=== PATIENT | female | born 1940 | race Caucasian/White ===

== ENCOUNTER 2021-06-10 18:00 | Inpatient (IN) | payer MEDICARE ==
[2021-06-10 19:08] LABS: #Eosinphils 0.3 thou/uL (0.0-0.7); #Lymphocytes 0.9 thou/uL (1.20-3.40); #Monocytes 0.7 thou/uL (0.11-0.59); #Neutrophils 7.5 thou/uL (1.40-6.50); %Basophils 0.1 % (0.0-1.0); %Eosinophils 3.1 % (0.0-10.0); %Lymphocytes 9.4 % (21.0-51.0); %Monocytes 7.2 % (0.0-10.0); %Neutrophils 80.2 % (42.0-75.0); Hemoglobin 15.4 g/dL (12.0-16.0); Mean Corpuscular Volume 78.6 fL (78.0-98.0); Mean Platelet Volume 7.8 fL (7.4-10.4); Platelet Count 162 thou/uL (130-400); RBC Distribution Width 15.2 % (11.5-14.5); Red Blood Cell (RBC) Count 5.94 mill/uL (4.20-5.40); White Blood Cell (WBC) Count 9.3 thou/uL (4.8-10.8)
[2021-06-10 19:37] LABS: CK (CPK) 458 U/L (29-168); Magnesium 1.7 mg/dL (1.6-2.6)
[2021-06-10 20:01] LABS: CKMB 3.2 ng/mL (0-6.6)
[2021-06-10 21:15] LABS: Bacteria/HPF 4+ HPF (None Seen); Bilirubin Negative (Negative); Blood, Urine 2+ (Negative); Clarity Turbid (Clear); Glucose, Urine (Dipstick) Normal (Negative); Ketone, Urine Negative (Negative); Leukocyte 75 Leu/uL (Negative); Nitrite Negative (Negative); Protein, Urine (Dipstick) 300 mg/dL (Neg-Trace); RBC/HPF 0-3 HPF (0-3); Specific Gravity, Urine 1.015 (1.002-1.036); pH, Urine 6.5 (5.0-9.0)
[2021-06-10] MEDS ORDERED: Aspirin 325 MG TAB ONE (21:38)
[2021-06-10 22:13] LABS: ALT (SGPT) 11 U/L (8-55); AST (SGOT) 28 U/L (5-34); Alkaline Phosphatase 102 U/L (40-110); Anion Gap 17 mmol/L (10-20); BUN (Urea Nitrogen) 26 mg/dL (9.8-20.1); Bilirubin, Total 1.9 mg/dL (0.2-1.2); Calc. Creatinine Clearance 0 mL/min (70-130); Calcium 10.9 mg/dL (7.8-10.44); Carbon Dioxide 23 mmol/L (23-31); Chloride 98 mmol/L (98-107); Globulin 4.1 g/dL (2.4-3.5); Glucose 157 mg/dL (83-110); Potassium 3.4 mmol/L (3.5-5.1); Protein, Total 8.1 g/dL (5.8-8.1); Sodium 135 mmol/L (136-145)
[2021-06-10 23:25] LABS: Troponin I 0.084 ng/mL (< 0.028)
[2021-06-10 23:40] VITALS: BMI 27.4
[2021-06-11] MEDS ORDERED: Labetalol HCl 100 MG/20 ML VIAL SLOW IVP SCH (00:53)
[2021-06-11 01:51] LABS: Troponin I 0.073 ng/mL (< 0.028)
[2021-06-11] MEDS ORDERED: Ondansetron PF 4 MG/2 ML Vial IVP PRN (02:37)
[2021-06-11] MEDS ORDERED: Sodium Chloride 0.9% 1,000 ML IV SCH (02:45)
[2021-06-11] MEDS ORDERED: Potassium Chloride 20 MEQ TAB PO SCH ×2 (02:45→17:45)
[2021-06-11] MEDS ORDERED: hydrALAZINE 20 MG/ML VIAL SLOW IVP PRN (03:08)
[2021-06-11] MEDS: hydrALAZINE 20 MG/ML VIAL SLOW IVP PRN ×2 (03:50→23:18)
[2021-06-11] MEDS: Acetaminophen 325 MG TAB PO PRN ×2 (04:30→23:23)
[2021-06-11 05:10] LABS: #Basophils 0.1 thou/uL (0.0-0.2); #Eosinphils 0.3 thou/uL (0.0-0.7); #Monocytes 0.7 thou/uL (0.11-0.59); #Neutrophils 8.7 thou/uL (1.40-6.50); %Basophils 0.5 % (0.0-1.0); %Eosinophils 2.9 % (0.0-10.0); %Lymphocytes 9.2 % (21.0-51.0); %Monocytes 6.4 % (0.0-10.0); Hemoglobin 15.2 g/dL (12.0-16.0); Mean Corpuscular HGB CONC 33.4 g/dL (32.0-36.0); Mean Corpuscular Hemoglobin 26.2 pg (27.0-31.0); Mean Corpuscular Volume 78.5 fL (78.0-98.0); Mean Platelet Volume 7.7 fL (7.4-10.4); Platelet Count 179 thou/uL (130-400); RBC Distribution Width 15.3 % (11.5-14.5); Red Blood Cell (RBC) Count 5.78 mill/uL (4.20-5.40); White Blood Cell (WBC) Count 10.7 thou/uL (4.8-10.8)
[2021-06-11 05:33] LABS: Anion Gap 14 mmol/L (10-20); BUN (Urea Nitrogen) 25 mg/dL (9.8-20.1); Calc. Creatinine Clearance 35 mL/min (70-130); Calcium 10.5 mg/dL (7.8-10.44); Carbon Dioxide 24 mmol/L (23-31); Chloride 98 mmol/L (98-107); Glucose 168 mg/dL (83-110); Magnesium 1.7 mg/dL (1.6-2.6); Sodium 133 mmol/L (136-145)
[2021-06-11] MEDS ORDERED: Carvedilol 6.25 MG TAB PO SCH (08:00)
[2021-06-11] MEDS: traMADol HCl 50 MG TAB PO PRN ×2 (08:46→22:01)
[2021-06-11] MEDS ORDERED: Enoxaparin Sodium 40 MG/0.4 ML SYRINGE SC SCH (09:00)
[2021-06-11] MEDS ORDERED: Rivaroxaban 15 MG TAB PO SCH (09:00)
[2021-06-11 14:20] LABS: SARS-CoV-2 PCR by NAA Not Detected (NotDetected)
[2021-06-11] MEDS: Carvedilol 6.25 MG TAB PO SCH (19:50)
[2021-06-11] MEDS ORDERED: Atorvastatin Calcium 20 MG TAB PO SCH (21:00)
[2021-06-12 04:26] LABS: #Eosinphils 0.3 thou/uL (0.0-0.7); #Lymphocytes 0.8 thou/uL (1.20-3.40); #Monocytes 0.7 thou/uL (0.11-0.59); #Neutrophils 6.7 thou/uL (1.40-6.50); %Basophils 0.4 % (0.0-1.0); %Eosinophils 3.7 % (0.0-10.0); %Lymphocytes 9.2 % (21.0-51.0); %Monocytes 8.5 % (0.0-10.0); %Neutrophils 78.2 % (42.0-75.0); Hemoglobin 13.3 g/dL (12.0-16.0); Mean Corpuscular HGB CONC 32.4 g/dL (32.0-36.0); Mean Corpuscular Volume 80.2 fL (78.0-98.0); Mean Platelet Volume 7.5 fL (7.4-10.4); Platelet Count 165 thou/uL (130-400); RBC Distribution Width 14.9 % (11.5-14.5); White Blood Cell (WBC) Count 8.6 thou/uL (4.8-10.8)
[2021-06-12 04:52] LABS: ALT (SGPT) 8 U/L (8-55); AST (SGOT) 14 U/L (5-34); Albumin 3.3 g/dL (3.4-4.8); Alkaline Phosphatase 89 U/L (40-110); Bilirubin, Direct 0.6 mg/dL (0.1-0.3); Bilirubin, Total 1.4 mg/dL (0.2-1.2); Protein, Total 6.5 g/dL (5.8-8.1)
[2021-06-12 04:55] LABS: Anion Gap 11 mmol/L (10-20); BUN (Urea Nitrogen) 24 mg/dL (9.8-20.1); Calc. Creatinine Clearance 36 mL/min (70-130); Carbon Dioxide 23 mmol/L (23-31); Chloride 101 mmol/L (98-107); Glucose 166 mg/dL (83-110); Magnesium 1.6 mg/dL (1.6-2.6); Sodium 131 mmol/L (136-145)
[2021-06-12] MEDS: Carvedilol 6.25 MG TAB PO SCH (08:53)
[2021-06-12] MEDS ORDERED: Rivaroxaban 15 MG TAB PO SCH (09:00)
[2021-06-12] MEDS ORDERED: FLUoxetine HCl 20 MG CAP PO SCH (09:00)
[2021-06-12] MEDS ORDERED: Cholecalciferol 1,000 UNITS (25 MCG) TAB PO SCH (09:00)
[2021-06-12] MEDS ORDERED: Furosemide 20 MG TAB PO SCH (09:00)
[2021-06-12] MEDS ORDERED: Amlodipine 5 MG TAB PO SCH (09:00)
[2021-06-12] MEDS ORDERED: Atorvastatin Calcium 20 MG TAB PO SCH (09:00)
[2021-06-12] MEDS ORDERED: Aspirin 81 mg Enteric Coated Tablet PO SCH (09:00)
[2021-06-12] MEDS ORDERED: Magnesium 2 GM/50 ML 2 GM in Premix Bag 1 BAG IVPB SCH (10:00)
[2021-06-12 13:17] LABS: ALT (SGPT) 9 U/L (8-55); AST (SGOT) 12 U/L (5-34); Albumin 3.3 g/dL (3.4-4.8); Alkaline Phosphatase 91 U/L (40-110); Bilirubin, Direct 0.5 mg/dL (0.1-0.3); Bilirubin, Total 1.3 mg/dL (0.2-1.2); Protein, Total 6.4 g/dL (5.8-8.1)
[2021-06-12] MEDS: traMADol HCl 50 MG TAB PO PRN (16:04)
[2021-06-12 16:07] VITALS: BP 150/70; TEMP 98.3
[2021-06-13] MEDS ORDERED: Amlodipine 10 MG TAB PO SCH (09:00)
== END 2021-06-12 17:45 | DRG 86 ==
LOC: ERS 18:00 → 2NO 21:29 → OBSVTOIN 06-11 16:11
PROVIDERS: ADMIT Internal Medicine; ATTEND Internal Medicine
DX: S06.350A Traumatic hemorrhage of left cerebrum without loss of consciousness, initial encounter (principal); E87.1 Hypo-osmolality and hyponatremia; I48.20 Chronic atrial fibrillation, unspecified; N17.9 Acute kidney failure, unspecified; S06.340A Traumatic hemorrhage of right cerebrum without loss of consciousness, initial encounter; Z20.822 Contact with and (suspected) exposure to COVID-19; E87.6 Hypokalemia; E88.09 Other disorders of plasma-protein metabolism, not elsewhere classified; N18.30 Chronic kidney disease, stage 3 unspecified; I16.0 Hypertensive urgency; E78.5 Hyperlipidemia, unspecified; I12.9 Hypertensive chronic kidney disease with stage 1 through stage 4 chronic kidney disease, or unspecified chronic kidney disease; I25.10 Atherosclerotic heart disease of native coronary artery without angina pectoris; M10.9 Gout, unspecified; M54.9 Dorsalgia, unspecified; W18.39XA Other fall on same level, initial encounter; Y93.01 Activity, walking, marching and hiking; I35.0 Nonrheumatic aortic (valve) stenosis; R79.89 Other specified abnormal findings of blood chemistry; E11.22 Type 2 diabetes mellitus with diabetic chronic kidney disease; M81.0 Age-related osteoporosis without current pathological fracture; Z79.01 Long term (current) use of anticoagulants; Z79.82 Long term (current) use of aspirin; Z79.899 Other long term (current) drug therapy; Z90.710 Acquired absence of both cervix and uterus; Z98.51 Tubal ligation status; Z90.49 Acquired absence of other specified parts of digestive tract; Z90.89 Acquired absence of other organs; Y92.002 Bathroom of unspecified non-institutional (private) residence as the place of occurrence of the external cause
CPT/HCPCS: 36415; 70450; 70551; 72125; 72131; 80048; 80053; 80076; 81003; 81015; 82550; 82553; 83735; 84484; 85025; 93005; 96374; 96375; G0378; J0360; J3475; J7050; U0003; U0005

== ENCOUNTER 2022-03-18 19:30 | Outpatient (CLI) | payer MEDICARE, OTHER | END 2022-03-18 19:31 | disposition home or self-care (01) | LOC: SLEEPLAB 19:30 | PROVIDERS: ATTEND Internal Medicine Cardiovascular Disease | DX: G47.33 Obstructive sleep apnea (adult) (pediatric) (principal); R53.83 Other fatigue; I27.20 Pulmonary hypertension, unspecified; R06.83 Snoring; G47.00 Insomnia, unspecified; G47.10 Hypersomnia, unspecified; I48.91 Unspecified atrial fibrillation; F32.9 Major depressive disorder, single episode, unspecified; I10 Essential (primary) hypertension | CPT/HCPCS: 95811 ==

== ENCOUNTER 2022-05-01 08:23 | Inpatient (IN) | payer MEDICARE, OTHER ==
[2022-05-01] MEDS ORDERED: Iopamidol-370 76% 500 ML 1 ML ONE (08:56)
[2022-05-01 10:23] LABS: Mean Corpuscular Hemoglobin 22.1 pg (27.0-31.0); Mean Corpuscular Volume 76.3 fL (78.0-98.0); Mean Platelet Volume 9.1 fL (7.4-10.4); Platelet Count 129 thou/uL (130-400); RBC Distribution Width 17.6 % (11.5-14.5); Red Blood Cell (RBC) Count 3.16 mill/uL (4.20-5.40); White Blood Cell (WBC) Count 7.4 thou/uL (4.8-10.8)
[2022-05-01 10:24] LABS: #Eosinphils 1.1 thou/uL (0.0-0.7); #Lymphocytes 0.5 thou/uL (1.20-3.40); #Monocytes 0.7 thou/uL (0.11-0.59); #Neutrophils 5.1 thou/uL (1.40-6.50); %Basophils 0.4 % (0.0-1.0); %Eosinophils 14.6 % (0.0-10.0); %Lymphocytes 7.1 % (21.0-51.0); %Monocytes 8.9 % (0.0-10.0)
[2022-05-01 10:35] LABS: INR-International Normal Ratio 1.7; Prothrombin Time 20.1 sec (12.0-14.7)
[2022-05-01 10:36] LABS: PTT 37.2 sec (22.9-36.1)
[2022-05-01 10:48] LABS: ALT (SGPT) Less than 7 U/L (8-55); AST (SGOT) 9 U/L (5-34); Albumin 3.6 g/dL (3.4-4.8); Alkaline Phosphatase 75 U/L (40-110); Anion Gap 13 mmol/L (10-20); BUN (Urea Nitrogen) 29 mg/dL (9.8-20.1); Bilirubin, Total 0.8 mg/dL (0.2-1.2); Calc. Creatinine Clearance 0 mL/min (70-130); Calcium 9.7 mg/dL (7.8-10.44); Carbon Dioxide 24 mmol/L (23-31); Chloride 106 mmol/L (98-107); Estimated GFR 23; Globulin 3.1 g/dL (2.4-3.5); Glucose 142 mg/dL (83-110); Potassium 3.5 mmol/L (3.5-5.1); Protein, Total 6.7 g/dL (5.8-8.1); Sodium 139 mmol/L (136-145)
[2022-05-01 10:55] LABS: Hypochromia SLIGHT = 6-15 cells (100X) (0-5/hpf); MDiff Complete? YES; Microcytosis SLIGHT = 6-15 cells (100X) (0-5/hpf); Platelet Morphology Comment Appears Decreased; Polychromasia SLIGHT = 2-3 cells (100X) (0-2/hpf)
[2022-05-01] MEDS ORDERED: Ondansetron PF 4 MG/2 ML Vial IVP PRN (14:56)
[2022-05-01] MEDS ORDERED: Ondansetron ODT 4 MG TAB PO PRN (14:56)
[2022-05-01] MEDS ORDERED: Calcium Carbonate 500 MG ChewTAB PO PRN (14:56)
[2022-05-01] MEDS ORDERED: Senokot S 8.6-50 MG TAB PO PRN (14:56)
[2022-05-01] MEDS ORDERED: Electrolyte Replacement Protocol FS SCH (15:00)
[2022-05-01] MEDS: Carvedilol 3.125 MG TAB PO SCH (17:42)
[2022-05-01 18:31] VITALS: BMI 26.4
[2022-05-01 19:00] LABS: Troponin I 0.012 ng/mL (< 0.028)
[2022-05-01 20:33] LABS: Troponin I Less than 0.010 ng/mL (< 0.028)
[2022-05-01] MEDS: Atorvastatin Calcium 40 MG TAB PO SCH (21:31)
[2022-05-01] MEDS: Folic Acid 1 MG TAB PO SCH (21:31)
[2022-05-01] MEDS: hydrALAZINE 25 MG TAB PO SCH (21:31)
[2022-05-01] MEDS: Amlodipine 5 MG TAB PO SCH (21:31)
[2022-05-01 22:51] LABS: Bacteria/HPF 4+ HPF (None Seen); Bilirubin Negative (Negative); Blood, Urine Negative (Negative); Clarity Turbid (Clear); Glucose, Urine (Dipstick) 500 mg/dL (Negative); Ketone, Urine Negative (Negative); Leukocyte 500 Leu/uL (Negative); Nitrite Negative (Negative); Protein, Urine (Dipstick) 20 mg/dL (Neg-Trace); RBC/HPF 0-3 HPF (0-3); Specific Gravity, Urine 1.021 (1.002-1.036); Squamous Epithelial None Seen HPF (0-3); Urobilinogen Normal mg/dL (Less than 2); WBC/HPF Greater than 50 HPF (0-3)
[2022-05-01 22:52] LABS: Urine Culture Reflex Yes Yes
[2022-05-02 04:04] LABS: #Eosinphils 0.9 thou/uL (0.0-0.7); #Lymphocytes 0.5 thou/uL (1.20-3.40); #Monocytes 0.6 thou/uL (0.11-0.59); #Neutrophils 4.5 thou/uL (1.40-6.50); %Basophils 0.4 % (0.0-1.0); %Eosinophils 13.7 % (0.0-10.0); %Lymphocytes 7.9 % (21.0-51.0); %Monocytes 8.8 % (0.0-10.0); %Neutrophils 69.3 % (42.0-75.0); Hemoglobin 8.6 g/dL (12.0-16.0); Mean Corpuscular HGB CONC 31.1 g/dL (32.0-36.0); Mean Corpuscular Hemoglobin 24.6 pg (27.0-31.0); Mean Corpuscular Volume 79.1 fL (78.0-98.0); Mean Platelet Volume 9.2 fL (7.4-10.4); Platelet Count 114 thou/uL (130-400); RBC Distribution Width 17.5 % (11.5-14.5); Red Blood Cell (RBC) Count 3.49 mill/uL (4.20-5.40); White Blood Cell (WBC) Count 6.5 thou/uL (4.8-10.8)
[2022-05-02 04:22] LABS: Phosphorus 3.2 mg/dL (2.3-4.7)
[2022-05-02 04:26] LABS: Anion Gap 12 mmol/L (10-20); BUN (Urea Nitrogen) 26 mg/dL (9.8-20.1); Calc. Creatinine Clearance 25 mL/min (70-130); Calcium 9.1 mg/dL (7.8-10.44); Carbon Dioxide 23 mmol/L (23-31); Chloride 106 mmol/L (98-107); Estimated GFR 28; Glucose 123 mg/dL (83-110); Magnesium 2.1 mg/dL (1.6-2.6); Potassium 3.6 mmol/L (3.5-5.1); Sodium 137 mmol/L (136-145)
[2022-05-02 04:31] LABS: Reticulocyte Count 2.6 % (0.5-1.5)
[2022-05-02] MEDS: hydrALAZINE 25 MG TAB PO SCH ×3 (09:10→20:44)
[2022-05-02] MEDS: FLUoxetine HCl 20 MG CAP PO SCH (09:10)
[2022-05-02] MEDS: Carvedilol 3.125 MG TAB PO SCH ×2 (09:10→17:46)
[2022-05-02] MEDS: Amlodipine 5 MG TAB PO SCH ×2 (09:10→20:44)
[2022-05-02] MEDS ORDERED: Loratadine 10 MG TAB PO SCH (10:00)
[2022-05-02] MEDS: diphenhydrAMINE 30 GM TUBE TOP PRN (20:44)
[2022-05-02] MEDS: Folic Acid 1 MG TAB PO SCH (20:44)
[2022-05-02] MEDS: Atorvastatin Calcium 40 MG TAB PO SCH (20:44)
[2022-05-03] MEDS: diphenhydrAMINE 30 GM TUBE TOP PRN (03:38)
[2022-05-03] MEDS: Acetaminophen 325 MG TAB PO PRN ×2 (03:50→20:18)
[2022-05-03 05:10] LABS: #Lymphocytes 0.4 thou/uL (1.20-3.40); #Monocytes 0.6 thou/uL (0.11-0.59); #Neutrophils 4.7 thou/uL (1.40-6.50); %Basophils 0.5 % (0.0-1.0); %Eosinophils 14.8 % (0.0-10.0); %Lymphocytes 6.3 % (21.0-51.0); %Monocytes 8.7 % (0.0-10.0); %Neutrophils 69.7 % (42.0-75.0); Hemoglobin 8.7 g/dL (12.0-16.0); Mean Corpuscular HGB CONC 30.8 g/dL (32.0-36.0); Mean Corpuscular Hemoglobin 24.6 pg (27.0-31.0); Mean Corpuscular Volume 79.9 fL (78.0-98.0); Mean Platelet Volume 9.4 fL (7.4-10.4); Platelet Count 118 thou/uL (130-400); RBC Distribution Width 18.1 % (11.5-14.5); Red Blood Cell (RBC) Count 3.53 mill/uL (4.20-5.40); White Blood Cell (WBC) Count 6.8 thou/uL (4.8-10.8)
[2022-05-03 05:22] LABS: Anion Gap 9 mmol/L (10-20); BUN (Urea Nitrogen) 27 mg/dL (9.8-20.1); Calc. Creatinine Clearance 25 mL/min (70-130); Calcium 9.4 mg/dL (7.8-10.44); Carbon Dioxide 26 mmol/L (23-31); Chloride 108 mmol/L (98-107); Estimated GFR 28; Glucose 126 mg/dL (83-110); Magnesium 2.2 mg/dL (1.6-2.6); Potassium 3.6 mmol/L (3.5-5.1); Sodium 139 mmol/L (136-145)
[2022-05-03] MEDS: Carvedilol 3.125 MG TAB PO SCH ×2 (10:07→15:50)
[2022-05-03] MEDS: Amlodipine 5 MG TAB PO SCH ×2 (10:07→20:18)
[2022-05-03] MEDS: hydrALAZINE 25 MG TAB PO SCH ×3 (10:07→20:18)
[2022-05-03] MEDS: FLUoxetine HCl 20 MG CAP PO SCH (10:07)
[2022-05-03] MEDS ORDERED: CEFAZOLIN 1 GM in Sodium Chloride 0.9% 100 ML IVPB SCH (12:00)
[2022-05-03] MEDS: diphenhydrAMINE 25 MG CAP PO PRN (18:27)
[2022-05-03] MEDS: HYDROcodone/Acetaminophen 7.5/325 mg Tablet PO PRN (18:30)
[2022-05-03] MEDS: Folic Acid 1 MG TAB PO SCH (20:18)
[2022-05-03] MEDS: Atorvastatin Calcium 40 MG TAB PO SCH (20:18)
[2022-05-04] MEDS: diphenhydrAMINE 25 MG CAP PO PRN (00:29)
[2022-05-04] MEDS: Acetaminophen 325 MG TAB PO PRN (00:29)
[2022-05-04] MEDS: CEFAZOLIN 1 GM in Sodium Chloride 0.9% 100 ML IVPB SCH ×2 (04:00→14:42)
[2022-05-04] MEDS: diphenhydrAMINE 30 GM TUBE TOP PRN ×3 (04:01→19:00)
[2022-05-04 05:25] LABS: #Eosinphils 1.4 thou/uL (0.0-0.7); #Lymphocytes 0.5 thou/uL (1.20-3.40); #Monocytes 0.6 thou/uL (0.11-0.59); #Neutrophils 4.6 thou/uL (1.40-6.50); %Basophils 0.3 % (0.0-1.0); %Eosinophils 20.1 % (0.0-10.0); %Lymphocytes 6.7 % (21.0-51.0); %Monocytes 8.4 % (0.0-10.0); %Neutrophils 64.6 % (42.0-75.0); Hemoglobin 8.7 g/dL (12.0-16.0); Mean Corpuscular HGB CONC 30.5 g/dL (32.0-36.0); Mean Corpuscular Hemoglobin 24.4 pg (27.0-31.0); Mean Corpuscular Volume 80.1 fL (78.0-98.0); Mean Platelet Volume 9.1 fL (7.4-10.4); Platelet Count 123 thou/uL (130-400); Red Blood Cell (RBC) Count 3.58 mill/uL (4.20-5.40); White Blood Cell (WBC) Count 7.1 thou/uL (4.8-10.8)
[2022-05-04 05:39] LABS: Anion Gap 9 mmol/L (10-20); BUN (Urea Nitrogen) 29 mg/dL (9.8-20.1); Calc. Creatinine Clearance 23 mL/min (70-130); Calcium 9.5 mg/dL (7.8-10.44); Carbon Dioxide 26 mmol/L (23-31); Chloride 107 mmol/L (98-107); Estimated GFR 25; Glucose 121 mg/dL (83-110); Potassium 3.7 mmol/L (3.5-5.1); Sodium 138 mmol/L (136-145)
[2022-05-04] MEDS: hydrALAZINE 25 MG TAB PO SCH ×4 (08:10→21:05)
[2022-05-04] MEDS: Carvedilol 3.125 MG TAB PO SCH ×2 (08:10→17:37)
[2022-05-04] MEDS: Amlodipine 5 MG TAB PO SCH ×2 (08:10→21:05)
[2022-05-04] MEDS: FLUoxetine HCl 20 MG CAP PO SCH (08:10)
[2022-05-04] MEDS: HYDROcodone/Acetaminophen 7.5/325 mg Tablet PO PRN ×2 (08:15→21:05)
[2022-05-04] MEDS ORDERED: Fluconazole 100 MG TAB PO SCH (16:19)
[2022-05-04] MEDS: Folic Acid 1 MG TAB PO SCH (21:05)
[2022-05-04] MEDS: Atorvastatin Calcium 40 MG TAB PO SCH (21:05)
[2022-05-05] MEDS: CEFAZOLIN 1 GM in Sodium Chloride 0.9% 100 ML IVPB SCH ×2 (03:21→21:23)
[2022-05-05 07:14] LABS: Anion Gap 11 mmol/L (10-20); BUN (Urea Nitrogen) 29 mg/dL (9.8-20.1); Calc. Creatinine Clearance 23 mL/min (70-130); Calcium 9.9 mg/dL (7.8-10.44); Carbon Dioxide 25 mmol/L (23-31); Chloride 107 mmol/L (98-107); Estimated GFR 25; Glucose 127 mg/dL (83-110); Potassium 4.3 mmol/L (3.5-5.1); Sodium 139 mmol/L (136-145)
[2022-05-05 07:17] LABS: #Eosinphils 1.3 thou/uL (0.0-0.7); #Lymphocytes 0.4 thou/uL (1.20-3.40); #Monocytes 0.4 thou/uL (0.11-0.59); #Neutrophils 5.1 thou/uL (1.40-6.50); %Basophils 0.3 % (0.0-1.0); %Eosinophils 18.4 % (0.0-10.0); %Lymphocytes 5.6 % (21.0-51.0); %Monocytes 5.9 % (0.0-10.0); %Neutrophils 69.9 % (42.0-75.0); Hemoglobin 9.7 g/dL (12.0-16.0); Mean Corpuscular HGB CONC 29.9 g/dL (32.0-36.0); Mean Corpuscular Hemoglobin 24.3 pg (27.0-31.0); Mean Corpuscular Volume 81.1 fL (78.0-98.0); Mean Platelet Volume 8.7 fL (7.4-10.4); Platelet Count 134 thou/uL (130-400); RBC Distribution Width 19.3 % (11.5-14.5); Red Blood Cell (RBC) Count 4.02 mill/uL (4.20-5.40); White Blood Cell (WBC) Count 7.2 thou/uL (4.8-10.8)
[2022-05-05] MEDS: Acetaminophen 325 MG TAB PO PRN ×2 (09:24→21:27)
[2022-05-05] MEDS: hydrALAZINE 25 MG TAB PO SCH ×4 (09:24→21:24)
[2022-05-05] MEDS: Carvedilol 3.125 MG TAB PO SCH ×2 (09:24→17:26)
[2022-05-05] MEDS: FLUoxetine HCl 20 MG CAP PO SCH (09:24)
[2022-05-05] MEDS: Amlodipine 5 MG TAB PO SCH ×2 (09:24→21:24)
[2022-05-05] MEDS: Folic Acid 1 MG TAB PO SCH (21:24)
[2022-05-05] MEDS: Atorvastatin Calcium 40 MG TAB PO SCH (21:24)
[2022-05-05] MEDS: diphenhydrAMINE 25 MG CAP PO PRN (21:27)
[2022-05-06] MEDS: CEFAZOLIN 1 GM in Sodium Chloride 0.9% 100 ML IVPB SCH ×3 (01:09→21:15)
[2022-05-06 04:55] LABS: #Eosinphils 1.4 thou/uL (0.0-0.7); #Lymphocytes 0.4 thou/uL (1.20-3.40); #Monocytes 0.5 thou/uL (0.11-0.59); #Neutrophils 4.1 thou/uL (1.40-6.50); %Basophils 0.1 % (0.0-1.0); %Eosinophils 21.9 % (0.0-10.0); %Lymphocytes 6.3 % (21.0-51.0); %Monocytes 7.8 % (0.0-10.0); %Neutrophils 63.8 % (42.0-75.0); Hemoglobin 8.4 g/dL (12.0-16.0); Mean Corpuscular HGB CONC 29.8 g/dL (32.0-36.0); Mean Corpuscular Hemoglobin 23.9 pg (27.0-31.0); Mean Corpuscular Volume 80.3 fL (78.0-98.0); Mean Platelet Volume 9.1 fL (7.4-10.4); Platelet Count 134 thou/uL (130-400); RBC Distribution Width 19.2 % (11.5-14.5); Red Blood Cell (RBC) Count 3.51 mill/uL (4.20-5.40); White Blood Cell (WBC) Count 6.5 thou/uL (4.8-10.8)
[2022-05-06] MEDS: diphenhydrAMINE 25 MG CAP PO PRN ×2 (05:06→21:17)
[2022-05-06 05:14] LABS: Anion Gap 10 mmol/L (10-20); BUN (Urea Nitrogen) 32 mg/dL (9.8-20.1); Calc. Creatinine Clearance 22 mL/min (70-130); Calcium 9.6 mg/dL (7.8-10.44); Carbon Dioxide 25 mmol/L (23-31); Chloride 108 mmol/L (98-107); Estimated GFR 24; Glucose 124 mg/dL (83-110); Potassium 4.2 mmol/L (3.5-5.1); Sodium 139 mmol/L (136-145)
[2022-05-06] MEDS: HYDROcodone/Acetaminophen 7.5/325 mg Tablet PO PRN (09:17)
[2022-05-06] MEDS: Aspirin 81 mg Enteric Coated Tablet PO SCH (09:17)
[2022-05-06] MEDS: Carvedilol 3.125 MG TAB PO SCH ×2 (09:17→18:14)
[2022-05-06] MEDS: hydrALAZINE 25 MG TAB PO SCH ×4 (09:18→21:16)
[2022-05-06] MEDS: FLUoxetine HCl 20 MG CAP PO SCH (09:19)
[2022-05-06] MEDS: Amlodipine 5 MG TAB PO SCH ×2 (09:19→21:16)
[2022-05-06] MEDS: diphenhydrAMINE 30 GM TUBE TOP PRN (09:20)
[2022-05-06] MEDS: Clopidogrel Bisulfate 75 MG TAB PO SCH (09:21)
[2022-05-06] MEDS ORDERED: Furosemide 40 MG/4 ML VIAL SLOW IVP SCH (12:15)
[2022-05-06] MEDS: Folic Acid 1 MG TAB PO SCH (21:15)
[2022-05-06] MEDS: Atorvastatin Calcium 40 MG TAB PO SCH (21:16)
[2022-05-07 05:40] LABS: Anion Gap 14 mmol/L (10-20); BUN (Urea Nitrogen) 34 mg/dL (9.8-20.1); Calc. Creatinine Clearance 21 mL/min (70-130); Calcium 10.1 mg/dL (7.8-10.44); Carbon Dioxide 23 mmol/L (23-31); Chloride 106 mmol/L (98-107); Estimated GFR 23; Glucose 134 mg/dL (83-110); Potassium 4.1 mmol/L (3.5-5.1); Sodium 139 mmol/L (136-145)
[2022-05-07 05:47] LABS: #Eosinphils 1.8 thou/uL (0.0-0.7); #Lymphocytes 0.4 thou/uL (1.20-3.40); #Monocytes 0.5 thou/uL (0.11-0.59); #Neutrophils 5.6 thou/uL (1.40-6.50); %Basophils 0.2 % (0.0-1.0); %Eosinophils 21.9 % (0.0-10.0); %Lymphocytes 4.7 % (21.0-51.0); %Monocytes 5.8 % (0.0-10.0); %Neutrophils 67.3 % (42.0-75.0); Hemoglobin 8.9 g/dL (12.0-16.0); Mean Corpuscular HGB CONC 29.7 g/dL (32.0-36.0); Mean Corpuscular Volume 80.6 fL (78.0-98.0); Mean Platelet Volume 8.5 fL (7.4-10.4); Platelet Count 154 thou/uL (130-400); RBC Distribution Width 19.2 % (11.5-14.5); White Blood Cell (WBC) Count 8.4 thou/uL (4.8-10.8)
[2022-05-07] MEDS ORDERED: Furosemide 20 MG TAB PO SCH (09:00)
[2022-05-07] MEDS: hydrALAZINE 25 MG TAB PO SCH ×4 (10:19→20:47)
[2022-05-07] MEDS: Amlodipine 5 MG TAB PO SCH ×2 (10:19→20:47)
[2022-05-07] MEDS: Aspirin 81 mg Enteric Coated Tablet PO SCH (10:19)
[2022-05-07] MEDS: Empagliflozin 10 MG TAB PO SCH (10:20)
[2022-05-07] MEDS: Clopidogrel Bisulfate 75 MG TAB PO SCH (10:20)
[2022-05-07] MEDS: FLUoxetine HCl 20 MG CAP PO SCH (10:20)
[2022-05-07] MEDS: Carvedilol 3.125 MG TAB PO SCH ×2 (10:21→16:30)
[2022-05-07] MEDS: Furosemide 40 MG/4 ML VIAL SLOW IVP SCH (13:53)
[2022-05-07] MEDS: Folic Acid 1 MG TAB PO SCH (20:47)
[2022-05-07] MEDS: Atorvastatin Calcium 40 MG TAB PO SCH (20:47)
[2022-05-07] MEDS: diphenhydrAMINE 25 MG CAP PO PRN (20:48)
[2022-05-07] MEDS: Acetaminophen 325 MG TAB PO PRN (20:55)
[2022-05-08 04:44] LABS: #Eosinphils 1.8 thou/uL (0.0-0.7); #Lymphocytes 0.6 thou/uL (1.20-3.40); #Monocytes 0.5 thou/uL (0.11-0.59); #Neutrophils 4.9 thou/uL (1.40-6.50); %Basophils 0.2 % (0.0-1.0); %Eosinophils 22.7 % (0.0-10.0); %Lymphocytes 8.1 % (21.0-51.0); %Monocytes 6.7 % (0.0-10.0); %Neutrophils 62.3 % (42.0-75.0); Hemoglobin 8.7 g/dL (12.0-16.0); Mean Corpuscular HGB CONC 29.6 g/dL (32.0-36.0); Mean Platelet Volume 8.9 fL (7.4-10.4); Platelet Count 149 thou/uL (130-400); RBC Distribution Width 19.2 % (11.5-14.5); Red Blood Cell (RBC) Count 3.61 mill/uL (4.20-5.40); White Blood Cell (WBC) Count 7.8 thou/uL (4.8-10.8)
[2022-05-08 05:03] LABS: Anion Gap 12 mmol/L (10-20); BUN (Urea Nitrogen) 33 mg/dL (9.8-20.1); Calc. Creatinine Clearance 23 mL/min (70-130); Calcium 9.8 mg/dL (7.8-10.44); Carbon Dioxide 28 mmol/L (23-31); Chloride 105 mmol/L (98-107); Estimated GFR 25; Glucose 130 mg/dL (83-110); Potassium 4.1 mmol/L (3.5-5.1); Sodium 141 mmol/L (136-145)
[2022-05-08] MEDS: Furosemide 40 MG/4 ML VIAL SLOW IVP SCH ×2 (05:28→12:56)
[2022-05-08] MEDS: Amlodipine 5 MG TAB PO SCH ×2 (08:08→21:03)
[2022-05-08] MEDS: Empagliflozin 10 MG TAB PO SCH (08:08)
[2022-05-08] MEDS: Carvedilol 3.125 MG TAB PO SCH ×2 (08:08→16:31)
[2022-05-08] MEDS: Clopidogrel Bisulfate 75 MG TAB PO SCH (08:08)
[2022-05-08] MEDS: Aspirin 81 mg Enteric Coated Tablet PO SCH (08:09)
[2022-05-08] MEDS: hydrALAZINE 25 MG TAB PO SCH ×4 (08:09→21:04)
[2022-05-08] MEDS: FLUoxetine HCl 20 MG CAP PO SCH (08:09)
[2022-05-08] MEDS: Folic Acid 1 MG TAB PO SCH (21:03)
[2022-05-08] MEDS: diphenhydrAMINE 25 MG CAP PO PRN (21:03)
[2022-05-08] MEDS: Atorvastatin Calcium 40 MG TAB PO SCH (21:04)
[2022-05-09 04:36] LABS: #Eosinphils 1.5 thou/uL (0.0-0.7); #Lymphocytes 0.4 thou/uL (1.20-3.40); #Monocytes 0.5 thou/uL (0.11-0.59); #Neutrophils 4.7 thou/uL (1.40-6.50); %Basophils 0.1 % (0.0-1.0); %Eosinophils 21.6 % (0.0-10.0); %Monocytes 6.5 % (0.0-10.0); %Neutrophils 65.8 % (42.0-75.0); Hemoglobin 8.7 g/dL (12.0-16.0); Mean Corpuscular HGB CONC 29.9 g/dL (32.0-36.0); Mean Corpuscular Hemoglobin 24.1 pg (27.0-31.0); Mean Corpuscular Volume 80.7 fL (78.0-98.0); Mean Platelet Volume 8.2 fL (7.4-10.4); Platelet Count 147 thou/uL (130-400); RBC Distribution Width 19.1 % (11.5-14.5); Red Blood Cell (RBC) Count 3.62 mill/uL (4.20-5.40); White Blood Cell (WBC) Count 7.1 thou/uL (4.8-10.8)
[2022-05-09 04:48] LABS: Anion Gap 12 mmol/L (10-20); BUN (Urea Nitrogen) 34 mg/dL (9.8-20.1); Calc. Creatinine Clearance 25 mL/min (70-130); Calcium 9.7 mg/dL (7.8-10.44); Carbon Dioxide 29 mmol/L (23-31); Chloride 102 mmol/L (98-107); Estimated GFR 27; Glucose 109 mg/dL (83-110); Potassium 3.6 mmol/L (3.5-5.1); Sodium 139 mmol/L (136-145)
[2022-05-09] MEDS: Furosemide 40 MG/4 ML VIAL SLOW IVP SCH ×2 (05:38→13:01)
[2022-05-09] MEDS: Amlodipine 5 MG TAB PO SCH ×2 (08:21→20:38)
[2022-05-09] MEDS: FLUoxetine HCl 20 MG CAP PO SCH (08:21)
[2022-05-09] MEDS: hydrALAZINE 25 MG TAB PO SCH ×4 (08:21→20:38)
[2022-05-09] MEDS: Carvedilol 6.25 MG TAB PO SCH ×2 (08:21→16:56)
[2022-05-09] MEDS: Aspirin 81 mg Enteric Coated Tablet PO SCH (08:22)
[2022-05-09] MEDS: Empagliflozin 10 MG TAB PO SCH (08:22)
[2022-05-09] MEDS: Clopidogrel Bisulfate 75 MG TAB PO SCH (08:22)
[2022-05-09] MEDS: Atorvastatin Calcium 40 MG TAB PO SCH (20:37)
[2022-05-09] MEDS: Folic Acid 1 MG TAB PO SCH (20:37)
[2022-05-09] MEDS: diphenhydrAMINE 25 MG CAP PO PRN (20:39)
[2022-05-10] MEDS: Furosemide 40 MG/4 ML VIAL SLOW IVP SCH ×2 (06:08→13:21)
[2022-05-10] MEDS: Amlodipine 5 MG TAB PO SCH ×2 (08:06→20:45)
[2022-05-10] MEDS: hydrALAZINE 25 MG TAB PO SCH ×4 (08:07→20:39)
[2022-05-10] MEDS: Empagliflozin 10 MG TAB PO SCH (08:07)
[2022-05-10] MEDS: Carvedilol 6.25 MG TAB PO SCH ×2 (08:07→16:21)
[2022-05-10] MEDS: Aspirin 81 mg Enteric Coated Tablet PO SCH (08:07)
[2022-05-10] MEDS: Clopidogrel Bisulfate 75 MG TAB PO SCH (08:07)
[2022-05-10] MEDS: FLUoxetine HCl 20 MG CAP PO SCH (08:07)
[2022-05-10] MEDS: diphenhydrAMINE 25 MG CAP PO PRN ×2 (08:08→20:39)
[2022-05-10 15:20] LABS: #Lymphocytes 0.5 thou/uL (1.20-3.40); #Monocytes 0.6 thou/uL (0.11-0.59); #Neutrophils 5.3 thou/uL (1.40-6.50); %Basophils 0.2 % (0.0-1.0); %Eosinophils 23.7 % (0.0-10.0); %Lymphocytes 6.2 % (21.0-51.0); %Monocytes 6.9 % (0.0-10.0); %Neutrophils 63.1 % (42.0-75.0); Hemoglobin 9.2 g/dL (12.0-16.0); Mean Corpuscular HGB CONC 31.1 g/dL (32.0-36.0); Mean Corpuscular Hemoglobin 24.8 pg (27.0-31.0); Mean Corpuscular Volume 79.7 fL (78.0-98.0); Mean Platelet Volume 8.8 fL (7.4-10.4); Platelet Count 141 thou/uL (130-400); RBC Distribution Width 19.1 % (11.5-14.5); Red Blood Cell (RBC) Count 3.69 mill/uL (4.20-5.40); White Blood Cell (WBC) Count 8.4 thou/uL (4.8-10.8)
[2022-05-10 15:33] LABS: Anion Gap 14 mmol/L (10-20); BUN (Urea Nitrogen) 36 mg/dL (9.8-20.1); Calc. Creatinine Clearance 22 mL/min (70-130); Calcium 9.8 mg/dL (7.8-10.44); Carbon Dioxide 28 mmol/L (23-31); Chloride 100 mmol/L (98-107); Estimated GFR 25; Glucose 135 mg/dL (83-110); Potassium 3.1 mmol/L (3.5-5.1); Sodium 139 mmol/L (136-145)
[2022-05-10] MEDS: Folic Acid 1 MG TAB PO SCH (20:39)
[2022-05-10] MEDS: Atorvastatin Calcium 40 MG TAB PO SCH (20:39)
[2022-05-10] MEDS ORDERED: Potassium Chloride 20 MEQ TAB PO SCH (23:45)
[2022-05-11] MEDS: Potassium Chloride 20 MEQ in Premix Bag 1 BAG IVPB SCH ×2 (01:21→04:56)
[2022-05-11] MEDS: Acetaminophen 325 MG TAB PO PRN ×2 (04:57→09:07)
[2022-05-11] MEDS: Furosemide 40 MG/4 ML VIAL SLOW IVP SCH (04:57)
[2022-05-11 05:11] LABS: Anion Gap 14 mmol/L (10-20); BUN (Urea Nitrogen) 40 mg/dL (9.8-20.1); Calc. Creatinine Clearance 22 mL/min (70-130); Carbon Dioxide 29 mmol/L (23-31); Chloride 101 mmol/L (98-107); Potassium 3.5 mmol/L (3.5-5.1); Sodium 140 mmol/L (136-145)
[2022-05-11 05:12] LABS: Estimated GFR 25; Glucose 135 mg/dL (83-110); Magnesium 1.9 mg/dL (1.6-2.6)
[2022-05-11 05:18] LABS: #Eosinphils 1.6 thou/uL (0.0-0.7); #Lymphocytes 0.5 thou/uL (1.20-3.40); #Monocytes 0.5 thou/uL (0.11-0.59); #Neutrophils 5.2 thou/uL (1.40-6.50); %Basophils 0.2 % (0.0-1.0); %Eosinophils 20.7 % (0.0-10.0); %Lymphocytes 6.2 % (21.0-51.0); %Monocytes 6.2 % (0.0-10.0); %Neutrophils 66.7 % (42.0-75.0); Hemoglobin 9.1 g/dL (12.0-16.0); Mean Corpuscular HGB CONC 29.3 g/dL (32.0-36.0); Mean Corpuscular Hemoglobin 23.6 pg (27.0-31.0); Mean Corpuscular Volume 80.7 fL (78.0-98.0); Mean Platelet Volume 8.8 fL (7.4-10.4); Platelet Count 144 thou/uL (130-400); RBC Distribution Width 19.5 % (11.5-14.5); Red Blood Cell (RBC) Count 3.86 mill/uL (4.20-5.40); White Blood Cell (WBC) Count 7.7 thou/uL (4.8-10.8)
[2022-05-11] MEDS ORDERED: Potassium Bicarbonate/Cit Ac 20 MEQ TAB PO SCH (08:00)
[2022-05-11] MEDS ORDERED: Magnesium 2 GM/50 ML(in water) 2 GM in Premix Bag 1 BAG IVPB SCH (08:00)
[2022-05-11] MEDS: Empagliflozin 10 MG TAB PO SCH (09:08)
[2022-05-11] MEDS: Aspirin 81 mg Enteric Coated Tablet PO SCH (09:08)
[2022-05-11] MEDS: Amlodipine 5 MG TAB PO SCH (09:08)
[2022-05-11] MEDS: Furosemide 20 MG TAB PO SCH (09:08)
[2022-05-11] MEDS: Carvedilol 6.25 MG TAB PO SCH (09:08)
[2022-05-11] MEDS: FLUoxetine HCl 20 MG CAP PO SCH (09:08)
[2022-05-11] MEDS: hydrALAZINE 25 MG TAB PO SCH ×4 (09:08→21:11)
[2022-05-11] MEDS: Carvedilol 3.125 MG TAB PO SCH (16:17)
[2022-05-11] MEDS: Atorvastatin Calcium 40 MG TAB PO SCH (21:11)
[2022-05-11] MEDS: Folic Acid 1 MG TAB PO SCH (21:11)
[2022-05-12 05:13] LABS: #Eosinphils 1.5 thou/uL (0.0-0.7); #Lymphocytes 0.5 thou/uL (1.20-3.40); #Monocytes 0.4 thou/uL (0.11-0.59); #Neutrophils 4.9 thou/uL (1.40-6.50); %Basophils 0.4 % (0.0-1.0); %Eosinophils 20.2 % (0.0-10.0); %Lymphocytes 6.3 % (21.0-51.0); %Monocytes 5.8 % (0.0-10.0); %Neutrophils 67.3 % (42.0-75.0); Hemoglobin 9.7 g/dL (12.0-16.0); Mean Corpuscular HGB CONC 29.5 g/dL (32.0-36.0); Mean Corpuscular Hemoglobin 23.8 pg (27.0-31.0); Mean Corpuscular Volume 80.6 fL (78.0-98.0); Mean Platelet Volume 9.1 fL (7.4-10.4); Platelet Count 142 thou/uL (130-400); RBC Distribution Width 19.5 % (11.5-14.5); Red Blood Cell (RBC) Count 4.05 mill/uL (4.20-5.40); White Blood Cell (WBC) Count 7.3 thou/uL (4.8-10.8)
[2022-05-12 05:19] LABS: Anion Gap 11 mmol/L (10-20); BUN (Urea Nitrogen) 36 mg/dL (9.8-20.1); Calc. Creatinine Clearance 23 mL/min (70-130); Calcium 10.2 mg/dL (7.8-10.44); Carbon Dioxide 33 mmol/L (23-31); Chloride 99 mmol/L (98-107); Estimated GFR 26; Glucose 115 mg/dL (83-110); Potassium 3.6 mmol/L (3.5-5.1); Sodium 139 mmol/L (136-145)
[2022-05-12] MEDS: HYDROcodone/Acetaminophen 7.5/325 mg Tablet PO PRN (07:18)
[2022-05-12] MEDS: Empagliflozin 10 MG TAB PO SCH (08:43)
[2022-05-12] MEDS: hydrALAZINE 25 MG TAB PO SCH ×2 (08:43→13:07)
[2022-05-12] MEDS: Carvedilol 3.125 MG TAB PO SCH (08:43)
[2022-05-12] MEDS: Aspirin 81 mg Enteric Coated Tablet PO SCH (08:43)
[2022-05-12] MEDS: FLUoxetine HCl 20 MG CAP PO SCH (08:44)
[2022-05-12] MEDS: Clopidogrel Bisulfate 75 MG TAB PO SCH (08:44)
[2022-05-12] MEDS: Furosemide 20 MG TAB PO SCH (08:44)
[2022-05-12] MEDS ORDERED: Amlodipine 5 MG TAB PO SCH (09:00)
[2022-05-12] MEDS: Acetaminophen 325 MG TAB PO PRN (10:18)
[2022-05-12 12:31] VITALS: BP 131/60; TEMP 95.8
== END 2022-05-12 16:00 | DRG 604 ==
LOC: ERS 08:23 → 2NO 17:04 → OBSVTOIN 05-02 15:47
PROVIDERS: ADMIT Internal Medicine; ATTEND Internal Medicine
PROC: 30233N1 Transfusion of Nonautologous Red Blood Cells into Peripheral Vein, Percutaneous Approach (ICD-10-PCS; principal; 2022-05-01)
DX: S40.022A Contusion of left upper arm, initial encounter (principal); I50.43 Acute on chronic combined systolic (congestive) and diastolic (congestive) heart failure; D62 Acute posthemorrhagic anemia; D68.32 Hemorrhagic disorder due to extrinsic circulating anticoagulants; I13.0 Hypertensive heart and chronic kidney disease with heart failure and stage 1 through stage 4 chronic kidney disease, or unspecified chronic kidney disease; N39.0 Urinary tract infection, site not specified; N18.30 Chronic kidney disease, stage 3 unspecified; Z79.01 Long term (current) use of anticoagulants; E78.5 Hyperlipidemia, unspecified; W19.XXXA Unspecified fall, initial encounter; Z86.73 Personal history of transient ischemic attack (TIA), and cerebral infarction without residual deficits; F41.9 Anxiety disorder, unspecified; B96.1 Klebsiella pneumoniae [K. pneumoniae] as the cause of diseases classified elsewhere; E11.22 Type 2 diabetes mellitus with diabetic chronic kidney disease; I25.10 Atherosclerotic heart disease of native coronary artery without angina pectoris; I27.20 Pulmonary hypertension, unspecified; Z79.84 Long term (current) use of oral hypoglycemic drugs; I48.0 Paroxysmal atrial fibrillation; T45.515A Adverse effect of anticoagulants, initial encounter
CPT/HCPCS: 36415; 36430; 70450; 71045; 71046; 71260; 72125; 74177; 80048; 80053; 81001; 83735; 84100; 84484; 85025; 85046; 85610; 85730; 86850; 86900; 86901; 87077; 87086; 87186; 87811; 93005; G0378; J0690; J1940; J3475; J3480; J3490; P9016; Q9967; U0003; U0005